=== PATIENT | female | born 1960 | race Caucasian/White ===

== ENCOUNTER → 2020-02-23 | Outpatient (CLI) | payer OTHER | LOC: EXRD 11:14 | DX: M25.561 Pain in right knee (principal); R26.2 Difficulty in walking, not elsewhere classified | CPT/HCPCS: 73560 ==

== ENCOUNTER → 2020-09-29 | Outpatient (CLI) | payer BC | LOC: MAMO 07:56 | DX: Z12.31 Encounter for screening mammogram for malignant neoplasm of breast (principal) | CPT/HCPCS: 77063; 77067 ==

== ENCOUNTER 2020-10-26 11:24 | Emergency (ER) | payer BC ==
[~2020-10-26] VITALS: Ht 152.4 cm; Wt 86.2 kg
== END 2020-10-26 15:30 | disposition home or self-care (01) ==
LOC: ER1 11:24
DX: Z23 Encounter for immunization (principal); U07.1 COVID-19
CPT/HCPCS: 99283; M0243

== ENCOUNTER → 2021-11-16 | Outpatient (CLI) | payer BC | LOC: MAMO 11-08 10:30 | DX: Z12.31 Encounter for screening mammogram for malignant neoplasm of breast (principal) | CPT/HCPCS: 77063; 77067 ==